=== PATIENT | female | born 1965 | race American Indian/Alaskan Native ===

== ENCOUNTER 2016-10-11 14:03 | Outpatient (CLI) | payer OTHER ==
--- NOTE | 2016-10-11 15:40 | Mammography Report ---
BILATERAL MAMMOGRAM with CAD: HISTORY: Cancer screening. FINDINGS: There are scattered fibroglandular densities (approximately 25%-50% glandular). No mass, distortion, suspicious calcification, or skin change is seen. IMPRESSION: Negative mammogram. There is no mammographic evidence of malignancy. RECOMMENDATION: Follow-up per ACS guidelines. BI-RADS CATEGORY: 1 = Negative ACR BI-RADS MAMMOGRAPHIC CODES: 0 = Needs additional imaging evaluation; 1 = Negative; 2 = Benign; 3 = Probably benign; 4 = Suspicious; 5 = Malignant; 6 = Known biopsy-proven malignancy COMMENT: 1. Dense breast tissue, i.e., adenosis, fibrocystic changes, etc., may obscure an underlying neoplasm. 2. Approximately 10% of cancers are not detected with mammography. 3. A negative mammography report should not delay biopsy if a clinically suspicious mass is present. COMMENT: [facility]
== END 2016-10-11 14:04 | disposition home or self-care (01) ==
LOC: SPVWC 14:03
PROVIDERS: ATTEND General Practice
DX: Z12.31 Encounter for screening mammogram for malignant neoplasm of breast (principal)
CPT/HCPCS: 77067; G0202

== ENCOUNTER 2017-10-14 10:46 | Outpatient (CLI) | payer OTHER ==
--- NOTE | 2017-10-15 14:01 | Mammography Report ---
BILATERAL DIGITAL SCREENING MAMMOGRAM with CAD: 10/14/17 10:46:00 CLINICAL: Routine screening. COMPARISON:10/11/16 FINDINGS: The breasts are heterogeneously dense, which may obscure small masses. A right asymmetry on the MLO view requires additional imaging.No architectural distortion or suspicious calcifications.The left breast is negative. IMPRESSION: Right asymmetry requiring further workup. BI-RADS CATEGORY: 0 -- Additional Imaging Evaluation Required RECOMMENDATION: Recall for right mediolateral and spot magnification MLO views and right breast ultrasound if needed. ACR BI-RADS MAMMOGRAPHIC CODES: 0 = Needs additional imaging evaluation; 1 = Negative; 2 = Benign; 3 = Probably benign; 4 = Suspicious; 5 = Malignant; 6 = Known biopsy-proven malignancy COMMENT: 1. Dense breast tissue, i.e., adenosis, fibrocystic changes, etc., may obscure an underlying neoplasm. 2. Approximately 10% of cancers are not detected with mammography. 3. A negative mammography report should not delay biopsy if a clinically suspicious mass is present. COMMENT: Patient follow-up letters are generated via our [employer] application.
== END 2017-10-14 10:47 | disposition home or self-care (01) ==
LOC: SPVWC 10:46
PROVIDERS: ATTEND Specialist
DX: Z12.31 Encounter for screening mammogram for malignant neoplasm of breast (principal)
CPT/HCPCS: 77067

== ENCOUNTER 2020-06-21 11:02 | Outpatient (CLI) | payer OTHER ==
--- NOTE | 2020-06-22 09:46 | Mammography Report ---
BILATERAL DIGITAL SCREENING MAMMOGRAM WITH CAD HISTORY: Screening mammogram. TECHNIQUE: Routine digital mammographic imaging performed. This examination was interpreted with dino kenney benefit of Computer-aided Detection analysis. COMPARISON: 06/24/2018, 10/14/2017, 10/11/2016. FINDINGS: Breast Density: scattered fibroglandular appearance of the breast tissue. Digital CC and MLO views demonstrate no mammographic evidence of malignancy. IMPRESSION: No mammographic evidence of malignancy. If the clinical examination remains stable, recommend bilate ral mammogram in approximately one year. BIRADS 1: Negative. FURTHER INFORMATION: According to the [employer], yearly mammograms are recommend ed starting at age 40 and continuing as long as a woman is in good health. Clinical Breast Exams shou ld be part of a periodic health exam-about every 3 years for women in their 20s and 30s and every yea r for women 40 and over. Breast self exam is an option for women starting in their 20s. Any breast ch leandro noted on a breast self exam should be reported promptly to the patient's healthcare provider. Br east MRI is recommended for women with an approximately 20-25% or greater lifetime risk of breast can cer, including women with a strong family history of breast or ovarian cancer and women who have been treated for Hodgkin's disease. A negative Mammography report should not discourage follow up or biopsy of a clinically significant f inding and/or abnormality. Dense breast tissue may obscure small neoplasms. The patient will be entered into a reminder system with a target due date for the next screening mamm ogram. A Signer Name: Scotty Abdul MD Signed: 06/22/2020 9:41 AM Workstation Name: [id number]
== END 2020-06-21 11:03 | disposition home or self-care (01) ==
LOC: SPVWC 11:02
PROVIDERS: ATTEND Family Medicine
DX: Z12.31 Encounter for screening mammogram for malignant neoplasm of breast (principal)
CPT/HCPCS: 77067

== ENCOUNTER 2021-06-22 08:26 | Outpatient (CLI) | payer OTHER ==
--- NOTE | 2021-06-22 17:43 | Mammography Report ---
DIGITAL SCREENING MAMMOGRAM WITH CAD, 06/22/2021 CLINICAL INFORMATION / INDICATION: Routine screening mammography. SCREENING MAMMO Z12.31 TECHNIQUE: Digital bilateral 2D mammography was obtained in the craniocaudal and mediolateral obliqu e projections. This examination was interpreted with the benefit of Computer-Aided Detection analysis . COMPARISON: 10/11/2016 through 06/21/2020. FINDINGS: Breast Density: There are scattered areas of fibroglandular density. No dominant mass, suspicious calcifications, or architectural distortion in either breast. IMPRESSION: No mammographic evidence of malignancy. Follow up recommendation: Routine yearly BI-RADS Category 1: Negative. A "normal" or negative report should not discourage follow up or biopsy of a clinically significant f inding. A written summary of these findings will be mailed to the patient. The patient will be entered into a mammography reporting system which will generate a reminder letter for the patient's next appointmen t at the appropriate interval. The [employer] recommends yearly mammograms starting at age 40 and continuing as l juan j as a woman is in good health. Breast MRI is recommended for women with an approximate 20-25% or greater lifetime risk of breast cancer, including women with a strong family history of breast or ova radha cancer or who have been treated for Hodgkin's disease. Signer Name: Nguyễn Darden MD Signed: 06/22/2021 5:38 PM Workstation Name: [id number]
== END 2021-06-22 08:27 | disposition home or self-care (01) ==
LOC: SPVWC 08:26
PROVIDERS: ATTEND Family Medicine
DX: Z12.31 Encounter for screening mammogram for malignant neoplasm of breast (principal)
CPT/HCPCS: 77067